=== PATIENT | male | born 2000 | race Caucasian/White ===

== ENCOUNTER 2022-08-31 18:54 | Emergency (ER) | payer BC ==
[~2022-08-31] VITALS: Ht 193 cm; Wt 136.0 kg
[~2022-08-31 18:54] MED LIST: HAVRIX720 UNI1 IM; TET/DIP TOX1 ML IM
[2022-08-31 19:23] VITALS: BP 140/83
[2022-08-31 20:17] VITALS: BP 128/78
[2022-08-31 20:33] LABS: BASO% 0.3 % (0-3); HEMATOCRIT 38.5 % (39.0-50.0); HEMOGLOBIN 13.5 g/dl (14.0-18.0); IMMATURE GRANULOCYTES 0.3 % (0.0-5.0); LYMPH% 22.1 % (15-41); MEAN CORPUSCULAR HGB 29.5 pG CALC (26.0-32.0); MEAN CORPUSCULAR HGB CONC 35.1 g/dL CAL (32.0-36.0); MONO% 7.8 % (2-13); NEUT# 7.85 thou/uL (1.82-7.42); NEUT% 68.5 % (42-76); RED BLOOD COUNT 4.57 mill/uL (4.70-6.10)
[2022-08-31 20:35] LABS: MEAN CELL VOLUME 84.2 fL CALC (80.0-100.0)
[2022-08-31 20:42] LABS: ALBUMIN 4.4 g/dL (3.2-5.0); ALKALINE PHOSPHATASE 69 u/l (38-126); ANION GAP 13 (6-22 (CALC)); BILIRUBIN, TOTAL 0.5 mg/dL (0.0-1.4); BUN 11 mg/dL (9-20); BUN/CREATININE RATIO 13 (12-20 (CALC)); CARBON DIOXIDE 28 mmol/l (22-30); CHLORIDE 104 mmol/l (95-108); CREATININE 0.9 mg/dL (0.7-1.3); GFR FOR AFR.AMER. > 60 ML/MIN (>=60 (CALC)); GFR OTHER RACES > 60 ML/MIN (>=60 (CALC)); POTASSIUM 3.7 mmol/l (3.5-5.1); SGOT/AST 37 u/l (17-59); SODIUM 141 mmol/l (137-146); TOTAL PROTEIN 7.5 g/dL (6.3-8.2)
[2022-08-31 20:53] VITALS: BP 100/49
[2022-08-31 20:56] VITALS: BP 114/61
[2022-08-31 23:00] VITALS: BP 124/70
[2022-08-31] MEDS ORDERED: VIBRAMYCIN100 M2 PO (23:40)
[2022-08-31 23:51] LABS: URINE BILIRUBIN - DIPSTICK NEGATIVE (NEGATIVE); URINE BLOOD DIPSTICK NEGATIVE (NEGATIVE); URINE COLOR YELLOW; URINE GLUCOSE - DIPSTICK NEGATIVE (NEGATIVE); URINE KETONE NEGATIVE (NEGATIVE); URINE LEUK ESTERASE TRACE (NEGATIVE); URINE NITRITE - DIPSTICK NEGATIVE (Negative); URINE PROTEIN - DIPSTICK NEGATIVE (NEG-TRACE); URINE SPECIFIC GRAVITY >=1.030; URINE UROBILINOGEN - DIPSTICK 0.2 E.U./dL (0.2)
[2022-09-01 01:51] VITALS: BP 124/70
== END 2022-09-01 01:55 | disposition home or self-care (01) | DRG 728 ==
LOC: ED 18:54
PROVIDERS: Emergency Medicine
DX: N45.2 Orchitis (principal); N45.3 Epididymo-orchitis; N45.1 Epididymitis

== ENCOUNTER 2023-05-10 17:35 | Emergency (ER) | payer BC, OTHER ==
[2023-05-10] VITALS (9 sets, daily range): BP systolic 100–138; BP diastolic 48–94
[~2023-05-10] VITALS: Ht 193 cm; Wt 148.0 kg
[~2023-05-10 17:35] MED LIST changes: +VIBRAMYCIN100 M2 PO
[2023-05-10 18:37] LABS: BASO% 0.4 % (0-3); EOS% 1.1 % (0-8); HEMATOCRIT 42.1 % (39.0-50.0); HEMOGLOBIN 14.4 g/dl (14.0-18.0); IMMATURE GRANULOCYTES 1.3 % (0.0-5.0); LYMPH% 24.6 % (15-41); MEAN CELL VOLUME 81.1 fL CALC (80.0-100.0); MEAN CORPUSCULAR HGB 27.7 pG CALC (26.0-32.0); MEAN CORPUSCULAR HGB CONC 34.2 g/dL CAL (32.0-36.0); MONO% 15.3 % (2-13); NEUT# 2.65 thou/uL (1.82-7.42); NEUT% 57.3 % (42-76); RED BLOOD COUNT 5.19 mill/uL (4.70-6.10); RED CELL DISTRI WIDTH 12.7 % (11.5-15.5)
[2023-05-10 18:38] LABS: URINE BLOOD DIPSTICK Negative (NEGATIVE); URINE GLUCOSE - DIPSTICK Negative (NEGATIVE); URINE KETONE Negative (NEGATIVE); URINE LEUK ESTERASE Negative (NEGATIVE); URINE NITRITE - DIPSTICK Negative (Negative); URINE PH 5.5 (4.5-8.0); URINE PROTEIN - DIPSTICK 30 mg/dL (NEG-TRACE); URINE SPECIFIC GRAVITY >=1.030; URINE UROBILINOGEN - DIPSTICK 0.2 E.U./dL (0.2)
[2023-05-10 18:39] LABS: URINE COLOR Dark yellow; URINE RBC 0-2 RBC/hpf (0-5); URINE WBC 0-2 WBC/hpf (0-5)
[2023-05-10 18:47] LABS: ALBUMIN 4.9 g/dL (3.2-5.0); ALKALINE PHOSPHATASE 81 u/l (38-126); ANION GAP 16 (6-22 (CALC)); BUN 11 mg/dL (9-20); BUN/CREATININE RATIO 13 (12-20 (CALC)); CARBON DIOXIDE 24 mmol/l (22-30); CHLORIDE 103 mmol/l (95-108); CREATININE 0.8 mg/dL (0.7-1.3); GFR FOR AFR.AMER. > 60 ML/MIN (>=60 (CALC)); GFR OTHER RACES > 60 ML/MIN (>=60 (CALC)); LIPASE 66 u/l (23-300); SGOT/AST 44 u/l (17-59); SODIUM 139 mmol/l (137-146); TOTAL PROTEIN 8.5 g/dL (6.3-8.2)
[2023-05-10 18:49] LABS: BILIRUBIN, TOTAL 1.3 mg/dL (0.2-1.3)
[2023-05-10] MEDS ORDERED: ZOFRAN4 MG/TAB PO (19:51)
== END 2023-05-10 20:06 | disposition home or self-care (01) | DRG 392 ==
LOC: ED 17:35
PROVIDERS: Family Medicine
DX: R10.84 Generalized abdominal pain (principal); R11.2 Nausea with vomiting, unspecified
CPT/HCPCS: Q9967